=== PATIENT | female | born 1980 | race Caucasian/White ===

== ENCOUNTER → 2017-08-22 | Outpatient (CLI) | payer OTHER ==
--- NOTE | 2017-08-26 07:43 | MM ---
Reason for exam: screening (asymptomatic). Last mammogram was performed 2 years and 10 months ago. Physical Findings: A clinical breast exam by your physician is recommended on an annual basis and results should be correlated with mammographic findings. MG Screening Mammo w CAD Bilateral CC and MLO view(s) were taken. Prior study comparison: October 13, 2014, bilateral MG screening mammo w CAD. October 06, 2013, bilateral MG diagnostic mammo w CAD [facility]. The breast tissue is heterogeneously dense. This may lower the sensitivity of mammography. Breast density increased post weight loss. No significant changes when compared with prior studies. ASSESSMENT: Negative, BI-RAD 1 RECOMMENDATION: Routine screening mammogram of both breasts at age 39.
== END | disposition home or self-care (01) ==
LOC: RADMAMWWP 07:03
PROVIDERS: ATTEND Obstetrics & Gynecology
DX: Z12.31 Encounter for screening mammogram for malignant neoplasm of breast (principal)
CPT/HCPCS: 77067

== ENCOUNTER → 2017-11-25 | Outpatient (CLI) | payer OTHER ==
--- NOTE | 2017-11-26 07:55 | CT ---
EXAMINATION TYPE: CT abdomen pelvis wo con DATE OF EXAM: 11/25/2017 HISTORY: Lower abdominal pain and loss of appetite x3 weeks. CT DLP: 266.2 mGycm. Automated Exposure Control for Dose Reduction was Utilized. TECHNIQUE: CT scan of the abdomen and pelvis is performed without oral or IV contrast. COMPARISON: CT abdomen and pelvis December 17, 2014. FINDINGS: Within the limitations of a non-contrast study, the following observations are made. LUNG BASES: Small area of linear scarring centrally left lung axial image 8 is redemonstrated. LIVER/GB: Stable 1.9 cm thin-walled cyst lateral segment left hepatic lobe axial image 13. Gallbladde r contracted on current study. PANCREAS: No significant abnormality is seen. SPLEEN: No significant abnormality is seen. ADRENALS: No significant abnormality is seen. KIDNEYS: No renal stones or hydronephrosis is present. BOWEL: Evaluation bowel is suboptimal due to patient having very little intra-abdominal fat and lack of enteric contrast. Debris-filled stomach suggest recent meal ingestion. There is no suspicious smal l or large bowel dilatation. Normal-appearing appendix is seen ascending from cecum. GENITAL ORGANS: Uterus is surgically absent or atrophic in appearance similar to the prior. Stable sm all 2 mm right pelvic phlebolith axial image 71. LYMPH NODES: No greater than 1cm abdominal or pelvic lymph nodes are appreciated. OSSEOUS STRUCTURES: No significant abnormality is seen. OTHER: No significant additional abnormality is seen. IMPRESSION: No bowel obstruction. No significant acute finding identified on noncontrast study to acc ount for patient's symptoms.
== END ==
LOC: RADCTMAIN 18:25
PROVIDERS: ATTEND Family Medicine
DX: R10.9 Unspecified abdominal pain (principal); Z88.0 Allergy status to penicillin
CPT/HCPCS: 74176

== ENCOUNTER → 2018-07-01 | Outpatient (CLI) | payer OTHER ==
--- NOTE | 2018-07-01 11:12 | CT ---
EXAMINATION TYPE: CT abdomen pelvis wo con DATE OF EXAM: 07/01/2018 HISTORY: LLQ pain with hematuria and diarrhea CT DLP: 273.7 mGycm. Automated Exposure Control for Dose Reduction was Utilized. TECHNIQUE: CT scan of the abdomen and pelvis is performed without oral or IV contrast. Comparison: CT abdomen pelvis November 25, 2017 FINDINGS: Within the limitations of a non-contrast study, the following observations are made. LUNG BASES: There is focal left basilar linear scarring. LIVER/GB: There is thin-walled 1.9 cm cyst lateral segment left hepatic lobe redemonstrated. Liver size is stable and mildly prominent. PANCREAS: No significant abnormality is seen. SPLEEN: No significant abnormality is seen. ADRENALS: No significant abnormality is seen. KIDNEYS: No renal calculi or hydronephrosis is identified bilaterally. BOWEL: Evaluation bowel is suboptimal secondary to lack of enteric contrast. No suspicious small or l arge bowel dilatation is present. Normal-appearing appendix ascends from cecum in the right pelvis. GENITAL ORGANS: Uterus is surgically absent or atrophic in appearance. Small amount of free fluid rig ht pelvis axial image 120 is noted. Remnant ovaries are felt identified, right slightly larger than l eft on axial image 108. Stable 2 mm right pelvic phleboliths axial image 118. LYMPH NODES: No greater than 1cm abdominal or pelvic lymph nodes are appreciated. OSSEOUS STRUCTURES: No significant abnormality is seen. OTHER: No significant additional abnormality is seen. IMPRESSION: No renal stones or hydronephrosis is seen bilaterally. No bowel obstruction. No significa nt acute finding identified on noncontrast study. No significant change from prior.
== END | disposition home or self-care (01) ==
LOC: RADCTMAIN 10:46
PROVIDERS: ATTEND Family Medicine
DX: R10.9 Unspecified abdominal pain (principal)
CPT/HCPCS: 74176

== ENCOUNTER → 2020-01-19 | Outpatient (CLI) | payer SELFPAY ==
--- NOTE | 2020-01-19 12:17 | US ---
EXAMINATION TYPE: US venous doppler duplex LE DATE OF EXAM: 01/19/2020 12:11 PM COMPARISON: NONE CLINICAL HISTORY: R60.0 edema. swelling left ankle following sprain. SIDE PERFORMED: Bilateral TECHNIQUE: The lower extremity deep venous system is examined utilizing real time linear array sonog chivo with graded compression, doppler sonography and color-flow sonography. VESSELS IMAGED: External Iliac Vein (EIV) Common Femoral Vein Deep Femoral Vein Greater Saphenous Vein * Femoral Vein Popliteal Vein Small Saphenous Vein * Proximal Calf Veins (* superficial vessels) Right Leg: Negative for DVT Left Leg: Negative for DVT Grayscale, color doppler, spectral doppler imaging performed of the deep veins of the bilateral lower extremities. There is normal flow, compressibility, vascular waveforms. IMPRESSION: No ultrasound evidence for acute DVT in either lower extremity.
== END | disposition home or self-care (01) ==
LOC: RADUSWWP 11:39
PROVIDERS: ATTEND Family Medicine
DX: R60.0 Localized edema (principal)
CPT/HCPCS: 93970

== ENCOUNTER → 2020-07-14 | Outpatient (CLI) | payer OTHER ==
--- NOTE | 2020-07-14 14:53 | XR ---
EXAMINATION TYPE: XR lumbar spine 2 or 3V DATE OF EXAM: 07/14/2020 CLINICAL HISTORY: Low back pain. TECHNIQUE: Frontal and lateral images of the lumbar spine are obtained. COMPARISON: CT abdomen and pelvis July 01, 2018. Lumbar spine x-ray July 19, 2014 FINDINGS: There are 5 lumbar type vertebral bodies are redemonstrated. The lumbar spine shows stabl e slight dextroconvex scoliotic curvature positioning centered L3 level without evidence of acute fra cture or dislocation. Mild disc space narrowing L4-L5 level otherwise vertebral body and disc space h eights appear within normal limits. Focal mild to moderate left lateral spurring L4-L5 level. The ove rlying soft tissue appears unremarkable. IMPRESSION: As above.
--- NOTE | 2020-07-14 15:00 | XR ---
EXAMINATION TYPE: XR Hip Bilateral and AP pelvis DATE OF EXAM: 07/14/2020 COMPARISON: CT abdomen and pelvis July 01, 2018 and older CTs. HISTORY: Pelvic and bilateral hip pain. TECHNIQUE: A single AP view of the pelvis is obtained. Two views of the bilateral hips are obtained. FINDINGS: There is no acute fracture/dislocation evident in the pelvis. The sacroiliac joints appea r symmetric and are thought within normal limits. Pubic symphysis intact. The overlying soft tissue appears unremarkable. Two views of bilateral hips show no acute fracture or dislocation. Stable small sclerotic focus left proximal femur subcapital region presumed benign bone island is unchanged from 2015 CT. Hip joint spa ce is symmetric adults within normal limits. The overlying soft tissue is unremarkable bilaterally. IMPRESSION: As above.
== END | disposition home or self-care (01) ==
LOC: RADXRMAIN 14:13
PROVIDERS: ATTEND Family Medicine
DX: M54.5 Low back pain (principal); M16.9 Osteoarthritis of hip, unspecified
CPT/HCPCS: 72100; 73521

== ENCOUNTER → 2021-04-06 | Outpatient (CLI) | payer OTHER ==
--- NOTE | 2021-04-10 09:56 | MM ---
Reason for exam: screening (asymptomatic). Last mammogram was performed 3 years and 7 months ago. Physical Findings: A clinical breast exam by your physician is recommended on an annual basis and results should be correlated with mammographic findings. MG Screening Mammo w CAD Bilateral CC and MLO view(s) were taken. Prior study comparison: August 22, 2017, bilateral MG screening mammo w CAD. October 13, 2014, bilateral MG screening mammo w CAD. The breast tissue is extremely dense which could obscure a lesion on mammography. There is no discrete abnormality. ASSESSMENT: Negative, BI-RAD 1 RECOMMENDATION: Routine screening mammogram of both breasts in 1 year.
== END | disposition home or self-care (01) ==
LOC: RADMAMWWP 16:15
PROVIDERS: ATTEND Obstetrics & Gynecology
DX: Z12.31 Encounter for screening mammogram for malignant neoplasm of breast (principal)
CPT/HCPCS: 77067

== ENCOUNTER → 2022-04-09 | Outpatient (CLI) | payer OTHER ==
--- NOTE | 2022-04-10 08:25 | MM ---
Reason for Exam: Screening (asymptomatic). Last screening mammogram was performed 12 month(s) ago. Patient History: Menarche at age 13. First Full-Term at age 17. Hysterectomy at age 28. Patient has history of breast feeding. Risk Values: Jennifer 5 year model risk: 0.4%. NCI Lifetime model risk: 6.6%. Prior Study Comparison: 10/13/2014 Bilateral Screening Mammogram, [facility]. 08/22/2017 Bilateral Screening Mammogram, [facility]. 04/06/2021 Bilateral Screening Mammogram, [facility]. Tissue Density: The breast tissue is extremely dense which could obscure a lesion on mammography. Findings: Analyzed By CAD. There is no suspicious group of microcalcifications or new suspicious mass in either breast. Stable chronic nodularity in the inferior left breast. No significant change from prior exams. Overall Assessment: Benign, BI-RAD 2 Management: Screening Mammogram of both breasts in 1 year. A clinical breast exam by your physician is recommended on an annual basis and results should be correlated with mammographic findings. Electronically signed and approved by: Renato Stark D.O.
== END | disposition home or self-care (01) ==
LOC: RADMAMWWP 07:12
PROVIDERS: ATTEND Obstetrics & Gynecology
DX: Z12.31 Encounter for screening mammogram for malignant neoplasm of breast (principal)
CPT/HCPCS: 77067

== ENCOUNTER → 2023-07-12 | Outpatient (CLI) | payer OTHER ==
--- NOTE | 2023-07-12 10:27 | XR ---
EXAMINATION TYPE: XR chest 2V DATE OF EXAM: 07/12/2023 COMPARISON: 11/23/2015 TECHNIQUE: PA and lateral views submitted. HISTORY: Chest pain FINDINGS: The lungs are clear and there is no pneumothorax, pleural effusion, or focal pneumonia. Heart size normal and no overt failure. Osseous structures demonstrate hypertrophic and degenerative changes of the spine. Mild hyperinflation can be associated with asthma or COPD. IMPRESSION: 1. No acute process.
== END | disposition home or self-care (01) ==
LOC: RADXRMAIN 09:37
PROVIDERS: ATTEND Family Medicine
DX: R07.89 Other chest pain (principal)
CPT/HCPCS: 71046

== ENCOUNTER → 2023-09-02 | Outpatient (CLI) | payer OTHER ==
--- NOTE | 2023-09-02 09:29 | XR ---
EXAMINATION TYPE: XR thoracic spine 2V, XR cervical spine limited DATE OF EXAM: 09/02/2023 9:18 AM CLINICAL INDICATION:Female, 42 years old with history of M54.6 pain thoracic spine COMPARISON: None TECHNIQUE: XR thoracic spine 2V, XR cervical spine limited views of the spine in Frontal and lateral projections. The odontoid view. FINDINGS: No evidence of acute fracture. There is scattered multilevel disk space narrowing without loss of ve rtebral body height. There is normal alignment of the thoracic vertebral bodies. Scattered osteophyte formation along the anterior and lateral aspects of the vertebral bodies most proximal thoracic spin e cervical spine is without significant degeneration. Neural foramen are patent given limitations of this exam. Spinal canal appears patent. IMPRESSION: 1. No acute osseous pathology. 2. 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
== END | disposition home or self-care (01) ==
LOC: RADXRMAIN 08:48
PROVIDERS: ATTEND Family Medicine
DX: M51.34 Other intervertebral disc degeneration, thoracic region (principal); D68.9 Coagulation defect, unspecified
CPT/HCPCS: 72040; 72070; 81291

== ENCOUNTER → 2024-04-23 | Outpatient (CLI) | payer OTHER ==
--- NOTE | 2024-04-23 12:23 | XR ---
EXAMINATION TYPE: XR elbow complete LT, XR wrist complete BILATERAL, XR hand complete bilateral, XR f orearm LT DATE OF EXAM: 04/23/2024 11:53 AM COMPARISON: Same day radiographs CLINICAL INDICATION: Female, 43 years old with history of M79.602 pain L arm; PHH, pain TECHNIQUE: XR elbow complete LT, XR wrist complete BILATERAL, XR hand complete bilateral, XR forearm LT; was evaluated in The bilateral wrists and hands were evaluated in 4 views. The left forearm was evaluated in 2 views Left elbow was evaluated in 4 views. FINDINGS: Anterior fat pad sign with cortical step-off of the radial head/neck region seen on one vie w. Right wrist/hand: No evidence for fracture. No significant degeneration. Soft tissues within normal l imits. Left wrist/hand: No evidence for fracture. No significant degeneration. Soft tissues within normal li mits. Left elbow/forearm: Cortical step-off of the radial head neck region seen on one view with associated anterior fat pad sign. Correlate for nondisplaced fracture. IMPRESSION: Nondisplaced fracture of the left radial head/neck suggested on one view with anterior fat pad sign. This can be confirmed with CT. Correlate with pain in this region. [facility], , 04/23/2024 12:21 PM
== END | disposition home or self-care (01) ==
LOC: RADXRMAIN 10:56
PROVIDERS: ATTEND Family Medicine
DX: S52.125A Nondisplaced fracture of head of left radius, initial encounter for closed fracture (principal); E65 Localized adiposity

== ENCOUNTER → 2024-08-03 | Outpatient (CLI) | payer OTHER ==
--- NOTE | 2024-08-03 14:50 | XR ---
EXAMINATION TYPE: XR lumbosacral spine min 4V DATE OF EXAM: 08/03/2024 2:40 PM COMPARISON: 07/14/2020 CLINICAL INDICATION: Female, 43 years old with history of M54.42 LUMBAGO WITH SCIATICA, LEFT SIDE R60 .0 LOCA; PHH, pain TECHNIQUE: XR lumbosacral spine min 4V - Frontal, lateral , bilateral oblique and coned in L5-S1 late ral views of the spine. FINDINGS: No evidence of any acute osseous pathology. No evidence of loss of vertebral body height i s seen. There is normal alignment of the lumbar vertebral bodies. Mild scattered disc space narrowing . Multilevel marginal osteophyte formation throughout the visualized spine. There is facet joint arth ropathy throughout the spine. Scattered at least mild neural foraminal stenosis. IMPRESSION: 1. No acute fracture. 2. Mild multilevel disc degeneration. [facility], , 08/03/2024 2:47 PM
== END | disposition home or self-care (01) ==
LOC: RADXRMAIN 14:09
PROVIDERS: ATTEND Family Medicine
DX: M51.17 Intervertebral disc disorders with radiculopathy, lumbosacral region (principal); R60.0 Localized edema; M99.71 Connective tissue and disc stenosis of intervertebral foramina of cervical region; M47.26 Other spondylosis with radiculopathy, lumbar region
CPT/HCPCS: 72110

== ENCOUNTER → 2024-09-02 | Outpatient (CLI) | payer OTHER ==
--- NOTE | 2024-09-02 21:31 | US ---
EXAMINATION TYPE: US venous doppler duplex LE DATE OF EXAM: 09/02/2024 3:57 PM COMPARISON: US(01/19/2020) CLINICAL INDICATION: Female, 43 years old with history of R60.0 LOCALIZED EDEMA [id number] LUMBAGO W/ SCIA LING; pt has no sensation or feeling in both legs and toes, no hx of DVT however pt states she has a blood clotting disorder,, Pain TECHNIQUE: The lower extremity deep venous system is examined utilizing real time linear array sonog chivo with graded compression, color doppler sonography, and spectral doppler. SIDE PERFORMED: Bilateral FINDINGS: VESSELS IMAGED: Common Femoral Vein Deep Femoral Vein Greater Saphenous Vein * Femoral Vein Popliteal Vein Small Saphenous Vein * Proximal Calf Veins Peroneal veins/posterior tibial veins (* superficial vessels) Right Leg: Negative for DVT, Color Doppler imaging shows patency of the vessels. Spectral waveforms are within normal limits. Left Leg: Negative for DVT, Color Doppler imaging shows patency of the vessels. Spectral waveforms a re within normal limits. IMPRESSION: No evidence for DVT within the bilateral lower extremities. [facility], , 09/02/2024 9:29 PM
== END | disposition home or self-care (01) ==
LOC: RADUSWWP 15:28
PROVIDERS: ATTEND Family Medicine
DX: M54.42 Lumbago with sciatica, left side (principal); R60.0 Localized edema; M79.661 Pain in right lower leg; M79.662 Pain in left lower leg
CPT/HCPCS: 93970